=== PATIENT | female | born 1980 | race Caucasian/White ===

== ENCOUNTER → 2023-05-24 07:20 | Outpatient (REF) | payer BC, SELFPAY | LOC: HWRAD 07:20 | PROVIDERS: ATTENDING PHYSICIAN Surgery; FAMILY PHYSICIAN Family Medicine | DX: R10.11 Right upper quadrant pain (principal) | CPT/HCPCS: 76700 ==

== ENCOUNTER 2024-01-16 16:57 | Outpatient (RCR) | payer BC, SELFPAY | END 2024-01-16 23:59 | disposition home or self-care (01) | LOC: RPT 16:57 | PROVIDERS: ATTENDING PHYSICIAN Psychiatry & Neurology Neurology; FAMILY PHYSICIAN Family Medicine | DX: G35 Multiple sclerosis (principal); I69.351 Hemiplegia and hemiparesis following cerebral infarction affecting right dominant side; Z73.6 Limitation of activities due to disability | CPT/HCPCS: 97110; 97112; 97116; 97163; 97530 ==

== ENCOUNTER 2024-02-21 09:57 | Outpatient (RCR) | payer BC, SELFPAY | END 2024-02-21 23:59 | disposition home or self-care (01) | LOC: ROT 09:57 | PROVIDERS: ATTENDING PHYSICIAN Psychiatry & Neurology Neurology; FAMILY PHYSICIAN Family Medicine | DX: G35 Multiple sclerosis (principal); I69.351 Hemiplegia and hemiparesis following cerebral infarction affecting right dominant side; Z73.6 Limitation of activities due to disability | CPT/HCPCS: 97110; 97112; 97116; 97167; 97530; 97537 ==

== ENCOUNTER 2024-03-14 16:07 | Outpatient (RCR) | payer BC, SELFPAY | END 2024-03-14 23:59 | disposition home or self-care (01) | LOC: ROT 16:07 | PROVIDERS: ATTENDING PHYSICIAN Psychiatry & Neurology Neurology; FAMILY PHYSICIAN Family Medicine | DX: G35 Multiple sclerosis (principal); I69.351 Hemiplegia and hemiparesis following cerebral infarction affecting right dominant side; Z73.6 Limitation of activities due to disability | CPT/HCPCS: 97110; 97112; 97530; 97535; 97537 ==

== ENCOUNTER 2024-04-18 17:02 | Outpatient (RCR) | payer BC, SELFPAY | END 2024-04-18 23:59 | disposition home or self-care (01) | LOC: ROT 17:02 | PROVIDERS: ATTENDING PHYSICIAN Psychiatry & Neurology Neurology; FAMILY PHYSICIAN Family Medicine | DX: G35 Multiple sclerosis (principal); I69.351 Hemiplegia and hemiparesis following cerebral infarction affecting right dominant side; Z73.6 Limitation of activities due to disability | CPT/HCPCS: 97110; 97530 ==

== ENCOUNTER 2024-05-16 17:34 | Outpatient (RCR) | payer BC, SELFPAY | END 2024-05-16 23:59 | disposition home or self-care (01) | LOC: ROT 17:34 | PROVIDERS: ATTENDING PHYSICIAN Psychiatry & Neurology Neurology; FAMILY PHYSICIAN Family Medicine | DX: G35 Multiple sclerosis (principal); I69.351 Hemiplegia and hemiparesis following cerebral infarction affecting right dominant side; R26.2 Difficulty in walking, not elsewhere classified; Z73.6 Limitation of activities due to disability; I63.312 Cerebral infarction due to thrombosis of left middle cerebral artery; R26.89 Other abnormalities of gait and mobility | CPT/HCPCS: 97110; 97112; 97140; 97530; 97537 ==

== ENCOUNTER 2024-05-30 17:18 | Outpatient (RCR) | payer BC, SELFPAY | END 2024-05-31 07:22 | disposition home or self-care (01) | LOC: ROT 17:18 | PROVIDERS: ATTENDING PHYSICIAN Psychiatry & Neurology Neurology; FAMILY PHYSICIAN Family Medicine | DX: G35 Multiple sclerosis (principal); I69.351 Hemiplegia and hemiparesis following cerebral infarction affecting right dominant side; Z73.6 Limitation of activities due to disability; R26.2 Difficulty in walking, not elsewhere classified; R26.89 Other abnormalities of gait and mobility; I63.312 Cerebral infarction due to thrombosis of left middle cerebral artery | CPT/HCPCS: 97110; 97112 ==